=== PATIENT | female | born 1940 | race Caucasian/White ===

== ENCOUNTER 2017-12-31 10:45 | Emergency (ER) | payer MEDICARE, OTHER ==
[~2017-12-31] VITALS: Ht 154.9 cm; Wt 77.3 kg
[2017-12-31] MEDS ORDERED: acetaminophen 325mg tablet PO ONE (13:35)
[2017-12-31 14:25] VITALS: BP 152/64
[2017-12-31] MEDS ORDERED: ONDA4TAB9 PO (14:54)
[2017-12-31] MEDS ORDERED: HYDR-3965 PO (14:54)
[2017-12-31] MEDS ORDERED: VAL5T PO (14:55)
[2017-12-31] MEDS ORDERED: METH500T PO (14:55)
== END 2017-12-31 15:15 | disposition home or self-care (01) ==
LOC: ER 10:45
DX: S22.088A Other fracture of T11-T12 vertebra, initial encounter for closed fracture (principal); S39.012A Strain of muscle, fascia and tendon of lower back, initial encounter; S70.02XA Contusion of left hip, initial encounter; E78.00 Pure hypercholesterolemia, unspecified; J44.9 Chronic obstructive pulmonary disease, unspecified; E11.9 Type 2 diabetes mellitus without complications; G89.29 Other chronic pain; Z79.899 Other long term (current) drug therapy; W18.39XA Other fall on same level, initial encounter; Y93.01 Activity, walking, marching and hiking; Y92.89 Other specified places as the place of occurrence of the external cause; Y99.8 Other external cause status
CPT/HCPCS: 72100; 73502; 99284